=== PATIENT | male | born 1945 | race Caucasian/White ===

== ENCOUNTER 2019-02-01 13:05 | Outpatient (CLI) | payer MEDICARE, OTHER | END 2019-02-01 23:59 | disposition home or self-care (01) | LOC: RAD 13:05 | PROVIDERS: ATTEND Nurse Practitioner Family | DX: K76.89 Other specified diseases of liver (principal); N23 Unspecified renal colic; Z87.442 Personal history of urinary calculi | CPT/HCPCS: 74176 ==